=== PATIENT | female | born 1995 | race Caucasian/White ===

== ENCOUNTER 2019-02-18 17:16 | Emergency (ER) | payer OTHER ==
[2019-02-18] MEDS ORDERED: ACETAMINOPHEN 325 MG TABLET PO STA (17:48)
[2019-02-18 17:52] LABS: BILIRUBIN,URINE NEGATIVE (NEGATIVE); GLUCOSE, URINE (UA) NEGATIVE (NEGATIVE); KETONES,URINE (UA) NEGATIVE (NEGATIVE); LEUKOCYTE ESTERASE, URINE NEGATIVE (NEGATIVE); NITRITE,URINE NEGATIVE (NEGATIVE); OCCULT BLOOD,URINE NEGATIVE (NEGATIVE); PROTEIN,URINE NEGATIVE (NEGATIVE); UROBILINOGEN,URINE 0.2 (NORMAL) E.U./dL (NORMAL)
--- NOTE | 2019-02-18 17:52 | ED Physician Documentation ---
PD HPI FEMALE - Stated complaint Stated Complaint: 8WKS/CRAMPING - Chief complaint Chief Complaint: Abd Pain - History obtained from History obtained from: Patient - History of Present Illness Timing - onset: Today Timing - duration: Hours (3) Timing - details: Gradual onset Pain level max: 5 Pain level max: 5 Associated symptoms: Pelvic pain, Vaginal discharge (clear). No: Fever, Chest/shoulder pain, Abdominal pain, Back pain, Vaginal pain, Vaginal bleeding, Genital sore/lesion, Dysuria, Urinary frequency, Hematuria Contributing factors: (8 weeks EGA). No: control, Oral contraceptive, Depo, IUD, Condoms, Tubal ligation, Hysterectomy, Sexually active, Not sexually active, Exposed to STD OB-TELETYPEWRITER OPERATOR History: G (1), P (0) Similar symptoms before: Has not had sx before Recently seen: Not recently seen Review of Systems Constitutional: denies: Fever, Chills Respiratory: denies: Cough GI: denies: Nausea, Vomiting, Hematemesis : denies: Dysuria, Frequency, Hesitancy Skin: denies: Rash Musculoskeletal: denies: Neck pain, Back pain Neurologic: denies: Headache PD PAST MEDICAL HISTORY - Past Medical History Past Medical History: No - Past Surgical History Past Surgical History: No - Present Medications Home Medications: Ambulatory Orders Medication Instructions Recorded Confirmed No Known Home Medications 02/18/19 02/18/19 - Allergies Allergies/Adverse Reactions: Allergies Allergy/AdvReac Type Severity Reaction Status Date / Time No Known Drug Allergies Allergy Verified 02/18/19 17:28 - Social History Does the pt smoke?: No Smoking Status: Never smoker Does the pt drink ETOH?: No Does the pt have substance abuse?: No PD ED PE NORMAL - Vitals Vital signs reviewed: Yes - General General: Alert and oriented X 3, No acute distress - HEENT HEENT: Moist mucous membranes - Neck Neck: Supple, no meningeal sign - Cardiac Cardiac: RRR - Respiratory Respiratory: No respiratory distress, Clear bilaterally - Abdomen Abdomen: Soft, Non distended, Other (TTP suprapubic without peritoneal signs.) - Derm Derm: Warm and dry - Extremities Extremities: No edema, No calf tenderness / cord - Neuro Neuro: Alert and oriented X 3 Results - Vitals Vitals: Vital Signs - 24 hr 02/18/19 02/18/19 17:24 20:43 Temperature 36.4 C L Heart Rate 86 72 Respiratory 16 16 Rate Blood Pressure 124/66 131/60 H O2 Saturation 100 100 Oxygen O2 Source Room air - Labs Labs: Laboratory Tests 02/18/19 02/18/19 02/18/19 17:40 17:44 17:44 WBC 8.8 RBC 4.79 Hgb 13.7 Hct 39.9 MCV 83.3 MCH 28.6 MCHC 34.3 RDW 12.3 Plt Count 247 MPV 9.4 Neut # (Auto) 5.3 Lymph # (Auto) 2.9 [place] # (Auto) 0.5 Eos # (Auto) 0.1 Baso # (Auto) 0.0 Absolute Nucleated RBC 0.00 Nucleated RBC % 0.0 Sodium 135 Potassium 3.4 L Chloride 104 Carbon Dioxide 23 Anion Gap 8.0 BUN 8 Creatinine 0.5 Estimated GFR (MDRD) 154 Glucose 89 Calcium 9.0 Total Bilirubin 0.5 AST 16 ALT 19 Alkaline Phosphatase 39 L Total Protein 7.5 Albumin 4.5 Globulin 3.0 Albumin/Globulin Ratio 1.5 Lipase 28 HCG, Quant Urine Color YELLOW Urine Clarity CLEAR Urine pH 7.0 Ur Specific [place] <=1.005 Urine Protein NEGATIVE Urine Glucose (UA) NEGATIVE Urine Ketones NEGATIVE Urine Occult Blood NEGATIVE Urine Nitrite NEGATIVE Urine Bilirubin NEGATIVE Urine Urobilinogen 0.2 (NORMAL) Ur Leukocyte Esterase NEGATIVE Ur Microscopic Review NOT INDICATED Urine Culture Comments NOT INDICATED Blood Type 02/18/19 02/18/19 17:44 17:44 WBC RBC Hgb Hct MCV MCH MCHC RDW Plt Count MPV Neut # (Auto) Lymph # (Auto) [place] # (Auto) Eos # (Auto) Baso # (Auto) Absolute Nucleated RBC Nucleated RBC % Sodium Potassium Chloride Carbon Dioxide Anion Gap BUN Creatinine Estimated GFR (MDRD) Glucose Calcium Total Bilirubin AST ALT Alkaline Phosphatase Total Protein Albumin Globulin Albumin/Globulin Ratio Lipase HCG, Quant 68494.00 Urine Color Urine Clarity Urine pH Ur Specific [place] Urine Protein Urine Glucose (UA) Urine Ketones Urine Occult Blood Urine Nitrite Urine Bilirubin Urine Urobilinogen Ur Leukocyte Esterase Ur Microscopic Review Urine Culture Comments Blood Type A NEGATIVE - Rads (name of study) OB ultrasound Radiology: Prelim report reviewed, EMP read contemporaneously, See rad report (Single intrauterine gestational sac measuring 5 weeks 6 days by mean gestational sac diameter. Yolk sac is identified. No pole is seen. Continued follow-up is recommended with beta-hCG and ultrasound. Simple ovarian cysts bilaterally measuring up to 4.6 cm on the left. ) PD MEDICAL DECISION MAKING - ED course Complexity details: reviewed results, re-evaluated patient, considered differential, d/w patient, d/w family ED course: 23-year-old female with abdominal cramping, has a single intrauterine gestational sac, 5 weeks 6 days. Has her appointment with OB early next week. No vaginal bleeding. Ectopic precautions given at bedside. Patient is G1, P0. Patient counseled regarding signs and symptoms for which I believe and urgent re-evaluation would be necessary. Patient with good understanding of and agreement to plan and is comfortable going home at this time This document was made in part using voice recognition software. While efforts are made to proofread this document, sound alike and grammatical errors may occur. Departure - Departure Disposition: 01 Home, Self Care Clinical Impression: Abdominal pain affecting Qualifiers: Weeks of gestation: less than 8 weeks Qualified Code(s): Z3A.01 - Less than 8 weeks gestation of Condition: Good Instructions: ED Abdominal Pain Rule Out Ectopic, ED Care Follow-Up: Nitin Stone ARNP [Primary Care Provider] - Within 3 Days Comments: Return if you worsen including worsening pain or bleeding. You are approximately 5 weeks and 6 days along[place] [address] today. Take tylenol for pain. Discharge Date/Time: 02/18/19 21:15
[2019-02-18 17:55] LABS: CLARITY,URINE CLEAR (CLEAR)
[2019-02-18 17:56] LABS: BASOPHILS % (AUTO) 0.5 %; EOSINOPHILS # (AUTO) 0.1 10^3/uL (0.0-0.7); EOSINOPHILS % (AUTO) 1.5 %; HGB - HEMOGLOBIN 13.7 g/dL (12.0-16.0); LYMPHOCYTES # (AUTO) 2.9 10^3/uL (1.5-3.5); LYMPHOCYTES % (AUTO) 32.7 %; MEAN CORPUSCULAR HEMOGLOBIN 28.6 pg (27.0-31.0); MEAN CORPUSCULAR HGB CONC 34.3 g/dL (32.0-36.0); MEAN CORPUSCULAR VOLUME 83.3 fL (81.0-99.0); MEAN PLATELET VOLUME 9.4 fL (7.9-10.8); MONOCYTES # (AUTO) 0.5 10^3/uL (0.0-1.0); MONOCYTES % (AUTO) 5.4 %; NEUTROPHILS # (AUTO) 5.3 10^3/uL (1.5-6.6); NEUTROPHILS % (AUTO) 59.4 %; PLT - PLATELET COUNT 247 10^3/uL (130-450); RED BLOOD COUNT 4.79 10^6/uL (4.20-5.40); RED CELL DISTRIBUTION WIDTH 12.3 % (12.0-15.0); WHITE BLOOD COUNT 8.8 x10^3/uL (4.8-10.8)
[2019-02-18 18:05] LABS: ALBUMIN 4.5 g/dL (3.2-5.5); ALBUMIN/GLOBULIN RATIO 1.5 (1.0-2.2); BILIRUBIN,TOTAL 0.5 mg/dL (0.2-1.0); CREATININE 0.5 mg/dL (0.4-1.0); TOTAL PROTEIN 7.5 g/dL (6.7-8.2)
--- NOTE | 2019-02-18 20:25 | Ultrasound Report ---
Reason: 8 weeks preg, pelvic pain Procedure Date: 02/18/2019 Accession Number: [id number] / [id number] Procedure: US - OB First Trimester CPT Code: FULL RESULT: EXAM: FIRST TRIMESTER OBSTETRIC ULTRASOUND (Less than 11 weeks) EXAM DATE: 02/18/2019 07:03 PM. CLINICAL HISTORY: 8 weeks preg, pelvic pain. LMP: 12/24/2018. COMPARISONS: None. TECHNIQUE: Transabdominal and transvaginal ultrasound examination with static image documentation. CLINICAL DATES: EGA 8 weeks 0 days with YVETTE 09/30/2019 based on LMP. ASSESSMENT: Gestational Sac: Single intrauterine. Mean gestational sac diameter: 10.7 mm = 5 weeks 6 days. Embryo: Not seen Yolk sac: 1.5 mm. Amniotic fluid: Not accurately assessed at this gestational age. Early placenta: Not visible at this gestational age. Other: No perigestational fluid collection demonstrated. MATERNAL STRUCTURES: Uterus: Anteverted. Unremarkable. Cervix: Closed. Right ovary appears unremarkable aside from a 1.8 cm simple appearing cyst. Left ovary demonstrates a 4.6 cm simple appearing cyst. 1.8 cm corpus luteum. Free Fluid: None. Other: None. IMPRESSION: Single intrauterine gestational sac measuring 5 weeks 6 days by mean gestational sac diameter. Yolk sac is identified. No pole is seen. Continued follow-up is recommended with beta-hCG and ultrasound. Simple ovarian cysts bilaterally measuring up to 4.6 cm on the left. RADIA
[2019-02-18 20:44] VITALS: BP 131/60
== END 2019-02-18 21:15 | disposition home or self-care (01) ==
LOC: ED 17:16
DX: O99.89 Other specified diseases and conditions complicating pregnancy, childbirth and the puerperium (principal); R10.9 Unspecified abdominal pain; Z3A.01 Less than 8 weeks gestation of pregnancy
CPT/HCPCS: 36415; 76801; 76817; 80053; 81003; 83690; 84702; 85025; 86900; 86901; 99283; A9270; 81001; 87086

== ENCOUNTER 2019-07-30 14:07 | Outpatient (CLI) | payer OTHER ==
[2019-07-30 18:32] LABS: HGB - HEMOGLOBIN 12.7 g/dL (12.0-16.0); MEAN CORPUSCULAR HEMOGLOBIN 29.3 pg (27.0-31.0); MEAN CORPUSCULAR HGB CONC 33.8 g/dL (32.0-36.0); MEAN CORPUSCULAR VOLUME 86.6 fL (81.0-99.0); MEAN PLATELET VOLUME 10.4 fL (7.9-10.8); RED BLOOD COUNT 4.34 10^6/uL (4.20-5.40); WHITE BLOOD COUNT 9.1 x10^3/uL (4.8-10.8)
== END 2019-07-30 23:59 | disposition home or self-care (01) ==
LOC: LAB.WCP 14:07
PROVIDERS: ATTEND Nurse Practitioner Obstetrics & Gynecology
DX: Z36.89 Encounter for other specified antenatal screening (principal)
CPT/HCPCS: 82950; 85027; 86850

== ENCOUNTER 2019-08-05 07:49 | Outpatient (CLI) | payer OTHER | END 2019-08-05 07:50 | disposition home or self-care (01) | LOC: LAB 07:49 | PROVIDERS: ATTEND Nurse Practitioner Obstetrics & Gynecology | DX: Z53.9 Procedure and treatment not carried out, unspecified reason (principal) | CPT/HCPCS: 36415; 82951; 82952 ==

== ENCOUNTER 2019-08-06 07:44 | Outpatient (CLI) | payer OTHER | END 2019-08-06 07:45 | disposition home or self-care (01) | LOC: LAB 07:44 | PROVIDERS: ATTEND Nurse Practitioner Obstetrics & Gynecology | DX: O99.810 Abnormal glucose complicating pregnancy (principal); Z3A.00 Weeks of gestation of pregnancy not specified | CPT/HCPCS: 36415; 82951; 82952 ==

== ENCOUNTER 2019-08-23 09:33 | Outpatient (CLI) | payer OTHER ==
--- NOTE | 2019-08-23 14:37 | Ultrasound Report ---
Reason: SCREENING Procedure Date: 08/23/2019 Accession Number: [id number] / [id number] Procedure: US - OB F/U or Repeat CPT Code: Final Report FULL RESULT: EXAM: FOLLOW-UP OBSTETRICAL ULTRASOUND EXAM DATE: 08/23/2019 10:08 AM. CLINICAL HISTORY: Follow-up of reported renal finding on anatomy scan performed at outside institution. COMPARISON: OB FIRST TRIMESTER 02/18/2019 7:03 PM. TECHNIQUE: Real-time sonographic evaluation of the fetus performed by the roguer. Multiple provider relations representative static images were saved for review. DATING: Established EGA 32 weeks 0 days with YVETTE 10/18/2018 based on reported working due date. GENERAL EVALUATION Wahl . Cardiac activity: 128 bpm. movement: Visualized. Presentation: Cephalic. Placenta: Posterior position. Amniotic fluid: Normal. TABATHA 17.2 cm. MVP 5.3 cm. ANATOMY Right kidney measures up to 4.1 cm with a prominent renal pelvis of up to 5.6 mm. Left kidney measures up to 4.2 cm in length with a prominent renal pelvis of up to 5.3 mm. IMPRESSION: 1. Wahl live intrauterine with gestational age 32 weeks 0 days based on reported working due date. 2. Symmetric size kidneys with bilateral prominent renal pelvises of up to 5.6 mm as described. Recommend correlation of bilateral prominent pelvices to previous examination, not available for comparison at the time of interpretation. RADIA
== END 2019-08-23 09:34 | disposition home or self-care (01) ==
LOC: DI 09:33
PROVIDERS: ATTEND Nurse Practitioner Obstetrics & Gynecology
DX: Z36.89 Encounter for other specified antenatal screening (principal)
CPT/HCPCS: 76816

== ENCOUNTER 2019-09-24 07:00 | Outpatient (CLI) | payer OTHER ==
[2019-09-24 21:34] LABS: TRICHOMONAS VAGINALIS DNA NEGATIVE (NEGATIVE)
== END 2019-09-24 23:59 | disposition home or self-care (01) ==
LOC: LAB.R 07:00
PROVIDERS: ATTEND Nurse Practitioner Obstetrics & Gynecology
DX: Z36.85 Encounter for antenatal screening for Streptococcus B (principal); Z36.89 Encounter for other specified antenatal screening
CPT/HCPCS: 87491; 87591; 87661; 87797

== ENCOUNTER 2019-09-24 15:23 | Outpatient (CLI) | payer OTHER ==
[2019-09-24 15:47] VITALS: BP 129/89
[2019-09-24 16:00] LABS: RUPTURE OF MEMBRANES PLUS NEGATIVE (NEGATIVE)
--- NOTE | 2019-09-24 16:23 | PROVIDER PROGRESS NOTE ---
- HPI Chief Complaint: Leakage of vaginal fluid Current : Current EDU 10/18/19 Gestation 36 Weeks and 4 Days 1 Para 0 Vital Signs Temperature 37.0 C 09/24/19 15:41 Heart Rate 87 09/24/19 15:41 Respiratory Rate 18 09/24/19 15:41 Blood Pressure 129/89 H 09/24/19 15:41 O2 Saturation 98 09/24/19 15:41 Temperature 37.0 C 09/24/19 15:41 Heart Rate 87 09/24/19 15:41 Respiratory Rate 18 09/24/19 15:41 Blood Pressure 129/89 H 09/24/19 15:41 O2 Saturation 98 09/24/19 15:41 - Procedures OB Procedure Performed: NST NST Procedure: NST Procedure Start Date 09/24/19 Start Time 15:40 Stop Time 16:00 Vibroacoustic Stimulation Used No Patient States Movement Yes Service Date of procedure: 09/24/19 - Plan Plan: Blanca presents to [facility] as directed following her routine visit today due to leakage of vaginal fluid which she states has been occurring for approximately 1 week. Upon examination, no gross leakage of fluid present. ROM plus - negative TABATHA -pending NST reactive. Baseline 140s, moderate variability, + accels, no decels NST completed 09/24/2019 NST read 09/24/2019 Pt released home with precautions. She verbalized understanding and agrees to above plan. She denies further questions or concerns at this time. FINAL DIAGNOSIS: 24yo @ 36.4wks gestation Vaginal discharge - not associated with amniotic fluid
--- NOTE | 2019-09-24 20:11 | Ultrasound Report ---
Reason: leaking fluid Procedure Date: 09/24/2019 Accession Number: [id number] / [id number] Procedure: US - OB F/U or Repeat CPT Code: Final Report FULL RESULT: EXAM: LIMITED OBSTETRICAL ULTRASOUND EXAM DATE: 09/24/2019 04:13 PM. CLINICAL HISTORY: Leaking fluid. COMPARISON: OB F/U OR REPEAT 08/23/2019 9:36 AM. TECHNIQUE: Real-time sonographic evaluation of the fetus performed by the patient registration manager. Multiple sales utility representative static images were saved for review. Additional transvaginal imaging to more accurately evaluate cervical length/placental position/etc. DATING: Established EGA 36 weeks 4 days. GENERAL EVALUATION Wahl . Cardiac activity: 143 bpm. Presentation: Cephalic. Placenta: Exterior position. Amniotic fluid: TABATHA 20.9 cm. MVP 10 cm. IMPRESSION: 1. Wahl live intrauterine with gestational age 36 weeks 4 days. 2. TABATHA 20.9 cm. 3. heart rate 143. RADIA
== END 2019-09-24 16:45 | disposition home or self-care (01) ==
LOC: WFO 15:23 → FBP 15:26 → WFO 16:45
PROVIDERS: ATTEND Nurse Practitioner Obstetrics & Gynecology
DX: O99.89 Other specified diseases and conditions complicating pregnancy, childbirth and the puerperium (principal); N89.8 Other specified noninflammatory disorders of vagina; Z3A.36 36 weeks gestation of pregnancy
CPT/HCPCS: 59025; 76816; 84112

== ENCOUNTER 2019-09-28 17:21 | Outpatient (CLI) | payer OTHER ==
--- NOTE | 2019-09-29 23:31 | Ultrasound Report ---
Reason: GESTATIONAL DIABETES Procedure Date: 09/28/2019 Accession Number: [id number] / [id number] Procedure: US - OB F/U or Repeat CPT Code: Final Report FULL RESULT: EXAM: FOLLOW-UP OBSTETRICAL ULTRASOUND EXAM DATE: 09/28/2019 06:27 PM. CLINICAL HISTORY: GESTATIONAL DIABETES. COMPARISON: OB F/U OR REPEAT 09/24/2019 4:13 PM. TECHNIQUE: Real-time sonographic evaluation of the fetus performed by the animal biologist. Multiple school admissions representative static images were saved for review. DATING: Established EGA 37 weeks 5 days with YVETTE 10/14/2019 based on LMP. EGA 37 weeks 1 day with YVETTE 10/18/2019 based on provider dating. EGA 37 weeks 3 days with YVETTE 10/16/2019 based on the current ultrasound. GENERAL EVALUATION Wahl . Cardiac activity: 151 bpm. movement: Visualized. Presentation: Cephalic. Placenta: Posterior position. Amniotic fluid: Upper limits of normal, 95th percentile. TABATHA 24.5 cm. MVP 7.2 cm. BIOMETRY Bi-Parietal Diameter (BPD): 9.5 cm, 38 weeks 2 days Head Circumference (HC): 33.5 cm, 38 weeks 2 days Abdominal Circumference (AC): 33.2 cm, 37 weeks 1 day Femur Length (FL): 7 cm, 35 weeks 5 days Estimated Weight: 3097 g, 54th percentile for 37 weeks 1 day. MATERNAL STRUCTURES The cervix measures 4.6 cm, and is closed. IMPRESSION: 1. Wahl live intrauterine with gestational age 37 weeks 1 day based on provider dating. 2. Estimated weight is within expected limits for assigned dating. 3. Amniotic fluid volume at the upper limits of normal. RADIA
== END 2019-09-28 17:22 | disposition home or self-care (01) ==
LOC: DI 17:21
PROVIDERS: ATTEND Nurse Practitioner Obstetrics & Gynecology
DX: O24.419 Gestational diabetes mellitus in pregnancy, unspecified control (principal); Z3A.37 37 weeks gestation of pregnancy
CPT/HCPCS: 76816

== ENCOUNTER 2019-09-30 15:50 | Outpatient (CLI) | payer OTHER ==
[2019-09-30 16:04] VITALS: BP 129/74
--- NOTE | 2019-10-22 09:44 | PROCEDURE REPORT ---
- HPI Diagnosis/Indication for NST: Decreased movement Current EDU 10/18/19 Gestation 37 Weeks and 3 Days 1 Para 0 Vital Signs Temperature 37.0 C 09/30/19 16:03 Heart Rate 98 09/30/19 16:03 Respiratory Rate 17 09/30/19 16:03 Blood Pressure 129/74 09/30/19 16:03 O2 Saturation 99 09/30/19 16:03 Temperature 37.0 C 09/30/19 16:03 Heart Rate 98 09/30/19 16:03 Respiratory Rate 17 09/30/19 16:03 Blood Pressure 129/74 09/30/19 16:03 O2 Saturation 99 09/30/19 16:03 - NST Procedure NST Procedure Start Date 09/30/19 Start Time 16:00 Stop Time 16:38 Vibroacoustic Stimulation Used No Patient States Movement Yes - Results and Plan Findings/Impression: reactive NST reassured Plan: reviewed FM
== END 2019-09-30 16:51 | disposition home or self-care (01) ==
LOC: WFO 15:50 → FBP 15:52 → WFO 16:51
PROVIDERS: ATTEND Obstetrics & Gynecology
DX: O36.8130 Decreased fetal movements, third trimester, not applicable or unspecified (principal)
CPT/HCPCS: 59025

== ENCOUNTER 2019-10-04 11:04 | Outpatient (CLI) | payer OTHER ==
[2019-10-04 11:14] VITALS: BP 120/79
--- NOTE | 2019-10-04 14:53 | Ultrasound Report ---
Reason: Polyhydramnios and GDM Procedure Date: 10/04/2019 Accession Number: [id number] / [id number] Procedure: US - OB Biophysical Profile CPT Code: Final Report FULL RESULT: EXAM: BIOPHYSICAL PROFILE EXAM DATE: 10/04/2019 01:09 PM. CLINICAL HISTORY: Polyhydramnios and GDM. COMPARISON: None. TECHNIQUE: Real-time sonographic evaluation of the fetus performed by the silk screen printing racker. Multiple patient portal representative static images were saved for review. DATING: Established EGA 38 weeks 0 days with YVETTE 10/18/2019. GENERAL EVALUATION Wahl . Cardiac activity: 146 bpm. movement: Visualized. Presentation: Cephalic. Placenta: Posterior position. No evidence for previa or abruption. Amniotic fluid: Normal. TABATHA 21.9 cm. MVP 7.9 cm. BIOPHYSICAL PROFILE Breathing = 2 Movement = 2 Tone = 2 Amniotic Fluid = 2 Total 04/01 IMPRESSION: 1. Wahl live intrauterine with gestational age 38 weeks 0 days based on established YVETTE. 2. Biophysical profile score 8 of 8. 3. Amniotic fluid next measures 21.9 cm. Previously measuring 24.5 cm. RADIA
--- NOTE | 2019-10-04 16:45 | PROCEDURE REPORT ---
- HPI Diagnosis/Indication for NST: Polyhydramnios Current EDU 10/18/19 Gestation 38 Weeks and 0 Days 1 Para 0 Vital Signs Temperature 36.9 C 10/04/19 11:13 Heart Rate 83 10/04/19 11:13 Respiratory Rate 18 10/04/19 11:13 Blood Pressure 120/79 10/04/19 11:13 O2 Saturation 100 10/04/19 11:13 Temperature 36.9 C 10/04/19 11:13 Heart Rate 83 10/04/19 11:13 Respiratory Rate 18 10/04/19 11:13 Blood Pressure 120/79 10/04/19 11:13 O2 Saturation 100 10/04/19 11:13 - NST Procedure NST Procedure Start Date 10/04/19 Start Time 11:10 Stop Time 12:40 Vibroacoustic Stimulation Used Yes Patient States Movement Yes - Results and Plan Findings/Impression: NST performed 10/04/2019 NST read 10/04/2019 NST reactive. Baseline 140s, moderate variability, + accels, no decels Plan: Blanca presents to [facility] for NST and BPP secondary to new diagnosis of polyhydramnios which was discovered on growth and TABATHA ultrasound performed on 09/28/2019 which revealed TABATHA 24.5cm (MVP 7.2cm). NST reactive. Baseline 140s, moderate variability, + accels, no decels BPP 8/8. Patient released home with precautions and will return for NST later this week. Pt verbalized understanding and agrees to above plan. She denies further questions or concerns at this time.
== END 2019-10-04 13:40 | disposition home or self-care (01) ==
LOC: WFO 11:04 → FBP 11:06 → WFO 13:40
PROVIDERS: ATTEND Nurse Practitioner Obstetrics & Gynecology
DX: O40.3XX0 Polyhydramnios, third trimester, not applicable or unspecified (principal); Z3A.38 38 weeks gestation of pregnancy
CPT/HCPCS: 59025; 76819

== ENCOUNTER 2019-10-06 14:16 | Outpatient (CLI) | payer OTHER ==
[2019-10-06 15:08] VITALS: BP 128/59
--- NOTE | 2019-10-06 15:10 | PROVIDER PROGRESS NOTE ---
- HPI Chief Complaint: Labor Check - Procedures OB Procedure Performed: NST Diagnosis/Indication for NST: Other NST Procedure: NST Procedure Start Time 11:10 Stop Time 12:40 Service Date of procedure: 10/06/19 - Plan Plan: Blanca presents to [facility] with complaints of swelling in her feet and ankles bilaterally in addition to contractions which have been persistent throughout the day today. She states she feels well hydrated and consistently drinks 8 glasses of water per day. She denies TREJO, visual disturbances, RUQ or epigastric pain. She denies vaginal bleeding or leakage of fluid and reports +FM. She denies urinary symptoms. Reports she does feel she may be slightly constipated. She has attempted to elevate her feet and rest for the past 2 hours and states it has not improved her swelling at all. 1+ edema noted to LE's bilaterally BP normotensive NST reactive. Baseline 140s, moderate variability, + accels, no decels Tocometry reveals mild uterine irritability with occasional contractions SVE deferred. Plan: Advised pt to increased fluid intake, hydrate, and rest. Encouraged warm bath/shower. Implement stool softener or use Mirilax to relieve constipation as this may be contributing to uterine irritability. Pt released home with precautions. Advised keeping her scheduled IOL 10/12/2019 and return sooner PRN. Pt verbalized understanding and agrees to above plan. She denies further questions or concerns at this time. FINAL DIAGNOSIS: False labor >37wks gestation Edema to lower extremities bilaterally
== END 2019-10-06 14:54 | disposition home or self-care (01) ==
LOC: WFO 14:16 → FBP 14:27 → WFO 14:54
PROVIDERS: ATTEND Nurse Practitioner Obstetrics & Gynecology
DX: O12.03 Gestational edema, third trimester (principal); O47.1 False labor at or after 37 completed weeks of gestation; Z3A.37 37 weeks gestation of pregnancy
CPT/HCPCS: 99213

== ENCOUNTER 2019-10-07 07:52 | Outpatient (CLI) | payer OTHER ==
[2019-10-07 08:09] VITALS: BP 119/70
--- NOTE | 2019-10-07 13:10 | Ultrasound Report ---
Reason: polyhydramnios Procedure Date: 10/07/2019 Accession Number: [id number] / [id number] Procedure: US - OB Biophysical Profile CPT Code: Final Report FULL RESULT: EXAM: BIOPHYSICAL PROFILE EXAM DATE: 10/07/2019 11:22 AM. CLINICAL HISTORY: Polyhydramnios. COMPARISON: OB BIOPHYSICAL PROFILE 10/04/2019 1:09 PM. TECHNIQUE: Real-time sonographic evaluation of the fetus performed by the file clerk data entry. Multiple lead customer service representative static images were saved for review. DATING: Established EGA 38 weeks 3 days with YVETTE 10/18/2019. GENERAL EVALUATION Wahl . Cardiac activity: 132 bpm. movement: Visualized. Presentation: Cephalic. Placenta: Posterior position. No evidence for previa or abruption. Amniotic fluid: Normal. TABATHA 20.7 cm. MVP 6.9 cm. BIOPHYSICAL PROFILE Breathing = 2 Movement = 2 Tone = 2 Amniotic Fluid = 2 Total 8/8 IMPRESSION: 1. Wahl live intrauterine with gestational age 38 weeks 3 days based on established YVETTE 10/18/2019. 2. Biophysical profile score 8 of 8. 3. Amniotic fluid index 20.7. Previously 21.9 RADIA
--- NOTE | 2019-10-07 18:06 | PROCEDURE REPORT ---
- HPI Diagnosis/Indication for NST: Polyhydramnios Current EDU 10/18/19 Gestation 38 Weeks and 3 Days 1 Para 0 Vital Signs Temperature 98.1 F 10/07/19 08:08 Heart Rate 115 H 10/07/19 08:08 Respiratory Rate 18 10/07/19 08:08 Blood Pressure 119/70 10/07/19 08:08 O2 Saturation 100 10/07/19 08:08 Temperature 98.1 F 10/07/19 08:08 Heart Rate 115 H 10/07/19 08:08 Respiratory Rate 18 10/07/19 08:08 Blood Pressure 119/70 10/07/19 08:08 O2 Saturation 100 10/07/19 08:08 - NST Procedure NST Procedure Start Date 10/07/19 Start Time 08:05 Stop Time 09:53 Vibroacoustic Stimulation Used Yes Patient States Movement Yes - Results and Plan Findings/Impression: BPP 10/10. Tracing with normal baseline, mod LTV. No accels other than with VAS. One possible variable decel lasting 20sec but more likely broken tracing. Plan to f/u for IOL in a few days due to poly.
== END 2019-10-07 12:15 | disposition home or self-care (01) ==
LOC: WFO 07:52 → FBP 07:58 → WFO 12:15
PROVIDERS: ATTEND Nurse Practitioner Obstetrics & Gynecology
DX: O40.3XX0 Polyhydramnios, third trimester, not applicable or unspecified (principal); Z3A.38 38 weeks gestation of pregnancy
CPT/HCPCS: 59025; 76819

== ENCOUNTER 2019-10-08 09:53 | Outpatient (CLI) | payer OTHER ==
[2019-10-08 10:13] VITALS: BP 117/66
[2019-10-08 10:56] LABS: RUPTURE OF MEMBRANES PLUS NEGATIVE (NEGATIVE)
--- NOTE | 2019-10-08 16:41 | PROVIDER PROGRESS NOTE ---
- HPI Chief Complaint: Leakage of vaginal fluid Current : Current EDU 10/18/19 Gestation 38 Weeks and 4 Days 1 Para 0 Vital Signs Temperature 37.1 C 10/08/19 10:12 Heart Rate 93 10/08/19 10:12 Respiratory Rate 16 10/08/19 10:12 Blood Pressure 117/66 10/08/19 10:12 O2 Saturation 100 10/08/19 10:12 Temperature 37.1 C 10/08/19 10:12 Heart Rate 93 10/08/19 10:12 Respiratory Rate 16 10/08/19 10:12 Blood Pressure 117/66 10/08/19 10:12 O2 Saturation 100 10/08/19 10:12 - Procedures OB Procedure Performed: NST Diagnosis/Indication for NST: Polyhydramnios NST Procedure: NST Procedure Start Date 10/08/19 Start Time 10:08 Stop Time 10:30 Vibroacoustic Stimulation Used No Patient States Movement Yes - Plan Plan: Blanca presents to [facility] concerns for vaginal leakage of fluid since the middle of the night last night. She reports every time she gets up from a sitting or laying down positions she feels leakage of clear fluid. She states most of the leaking occurred when she was getting up in the night to use the bathroom. She denies vaginal bleeding. She reports +FM. States she has noticed some mild contractions in addition to regular kristen song contractions but is not concerned at this point that she is in active labor although feels things may be starting to change. Upon examination, no gross leakage of vaginal fluid noted. ROM plus collected and returned NEGATIVE Pt has a hx of polyhydramnios in this with TABATHA which was noted to be WNL on the last 2 ultrasounds last week. NST today is reactive. FHR baseline 150s, moderate variability, + accels, no decels. Occasional contraction noted via tocometry. NST performed 10/08/2019. NST read 10/08/2019 Pt released home with precautions. Advised to keep regularly scheduled appt later today. Pt verbalized understanding and agrees to above plan. She denies further questions or concerns at this time. FINAL DIAGNOSIS: Clear vaginal discharge 24yo @ 38.4wks gestation Polyhydramnios- resolved A1GDM
== END 2019-10-08 11:20 | disposition home or self-care (01) ==
LOC: WFO 09:53 → FBP 09:55 → WFO 11:20
PROVIDERS: ATTEND Nurse Practitioner Obstetrics & Gynecology
DX: O99.89 Other specified diseases and conditions complicating pregnancy, childbirth and the puerperium (principal); N89.8 Other specified noninflammatory disorders of vagina; Z3A.38 38 weeks gestation of pregnancy
CPT/HCPCS: 59025; 84112; 99213

== ENCOUNTER 2019-10-08 18:40 | Outpatient (CLI) | payer OTHER ==
[2019-10-08 18:57] VITALS: BP 123/75
[2019-10-08 21:02] LABS: RUPTURE OF MEMBRANES PLUS POSITIVE (NEGATIVE)
[2019-10-08] MEDS ORDERED: hydrOXYzine PAMOATE 25 MG CAPSULE PO ONE (22:18)
--- NOTE | 2019-10-08 22:21 | PROCEDURE REPORT ---
- HPI Diagnosis/Indication for NST: Other (r/o labor, r/o SROM) Vital Signs Temperature 98 F 10/08/19 18:56 Heart Rate 88 10/08/19 18:56 Respiratory Rate 22 10/08/19 18:56 Blood Pressure 123/75 10/08/19 18:56 O2 Saturation 100 10/08/19 18:56 Temperature 98 F 10/08/19 18:56 Heart Rate 88 10/08/19 18:56 Respiratory Rate 22 10/08/19 18:56 Blood Pressure 123/75 10/08/19 18:56 O2 Saturation 100 10/08/19 18:56 - NST Procedure NST Procedure Start Time 10:08 Stop Time 10:30 - Results and Plan Findings/Impression: Contractions q5, "painful", palpate mild. "leaking of fluid" clear and milky, some down the leg. No VB. Good FM. AVSS Alert, NAD EFG normal, vag normal, clumpy discharge in the vault, neg pool, neg valsalva, neg nitrizine, neg fern. +ROM plus test. MVP 6.5, vertex A/P: Intact BOW, prodromal labor, discharge home with vistaril, labor precautions given.
== END 2019-10-08 22:50 | disposition home or self-care (01) ==
LOC: WFO 18:40 → FBP 18:42 → WFO 22:50
PROVIDERS: ATTEND Obstetrics & Gynecology
DX: O47.9 False labor, unspecified (principal); O99.89 Other specified diseases and conditions complicating pregnancy, childbirth and the puerperium; N89.8 Other specified noninflammatory disorders of vagina; Z3A.38 38 weeks gestation of pregnancy; O24.410 Gestational diabetes mellitus in pregnancy, diet controlled
CPT/HCPCS: 59025; 84112; 99213; A9270; 99214

== ENCOUNTER 2019-10-09 23:05 | Inpatient (IN) | payer OTHER ==
[2019-10-10] MEDS ORDERED: SODIUM CHLORIDE FLUSH 0.9% 10 ML SYRINGE IVP PRN (00:07)
[2019-10-10] MEDS ORDERED: AMPICILLIN 2 GM in SODIUM CHLORIDE 0.9% MINIBAG 100 ML IV ONE (00:07)
[2019-10-10] MEDS ORDERED: ONDANSETRON 4 MG/2 ML VIAL ONE (00:54)
[2019-10-10] MEDS ORDERED: ACETAMINOPHEN 325 MG TABLET PO SCH (01:00)
[2019-10-10] MEDS: LACTATED RINGERS 1,000 ML IV SCH ×2 (01:05→05:07)
[2019-10-10] MEDS ORDERED: ONDANSETRON 4 MG/2 ML VIAL IVP PRN ×2 (01:06→02:46)
[2019-10-10 01:19] LABS: ALBUMIN 3.2 g/dL (3.2-5.5); BILIRUBIN,TOTAL 0.4 mg/dL (0.2-1.0); CALCIUM 8.9 mg/dL (8.5-10.3); CREATININE 0.7 mg/dL (0.4-1.0); TOTAL PROTEIN 6.4 g/dL (6.7-8.2)
[2019-10-10] MEDS ORDERED: ROPIVACAINE 0.2% 200 MG/100 ML BAG EP ONE (01:51)
[2019-10-10 01:53] LABS: BASOPHILS % (AUTO) 0.4 %; HGB - HEMOGLOBIN 13.6 g/dL (12.0-16.0); LYMPHOCYTES # (AUTO) 1.8 10^3/uL (1.5-3.5); LYMPHOCYTES % (AUTO) 15.5 %; MEAN CORPUSCULAR HGB CONC 33.5 g/dL (32.0-36.0); MEAN CORPUSCULAR VOLUME 83.5 fL (81.0-99.0); MEAN PLATELET VOLUME 12.3 fL (7.9-10.8); MONOCYTES # (AUTO) 0.7 10^3/uL (0.0-1.0); MONOCYTES % (AUTO) 5.9 %; NEUTROPHILS # (AUTO) 8.7 10^3/uL (1.5-6.6); NEUTROPHILS % (AUTO) 77.5 %; PLT - PLATELET COUNT 213 10^3/uL (130-450); RED BLOOD COUNT 4.86 10^6/uL (4.20-5.40); RED CELL DISTRIBUTION WIDTH 14.4 % (12.0-15.0); WHITE BLOOD COUNT 11.3 x10^3/uL (4.8-10.8)
[2019-10-10] MEDS ORDERED: diphenhydrAMINE INJ 50 MG/ML VIAL IVP PRN (02:46)
[2019-10-10] MEDS ORDERED: NALOXONE 0.4 MG/ML VIAL IVP PRN (02:46)
[2019-10-10] MEDS ORDERED: ePHEDrine 50 MG/ML VIAL IVP PRN (02:46)
[2019-10-10] MEDS ORDERED: ROPIVACAINE 0.2% 200 MG/100 ML BAG EP PRN (02:46)
[2019-10-10] MEDS ORDERED: METOCLOPRAMIDE 10 MG/2 ML VIAL IVP PRN (02:46)
[2019-10-10] MEDS ORDERED: NALBUPHINE 10 MG/ML AMP IVP PRN (02:46)
[2019-10-10] MEDS ORDERED: LACTATED RINGERS 500 ML IV ONE (02:46)
--- NOTE | 2019-10-10 02:50 | ANESTHESIA ---
Pre-Anesthesia VS, & Labs - Diagnosis active labor - Procedure labor epidural Vital Signs: Temp Pulse Resp BP Pulse Ox 36.7 C 120 H 22 151/91 H 10/09/19 23:15 10/09/19 23:15 10/09/19 23:15 10/09/19 23:15 Height 5 ft 6 in Weight (kg) 123.831 kg Body Mass Index 33.5 - NPO Other (instructed to be clear liquids from now until after delivery) - Is Patient ?: Yes - Lab Results Current Lab Results: Laboratory Tests 10/10/19 00:40: Sodium 137, Potassium 3.7, Chloride 107, Carbon Dioxide 19 L, Anion Gap 11.0, BUN 9, Creatinine 0.7, Estimated GFR (MDRD) 104, Glucose 106 H, Calcium 8.9, Total Bilirubin 0.4, AST 22, ALT 18, Alkaline Phosphatase 138 H, Total Protein 6.4 L, Albumin 3.2, Globulin 3.2, Albumin/Globulin Ratio 1.0 10/10/19 00:40: WBC 11.3 H, RBC 4.86, Hgb 13.6, Hct 40.6, MCV 83.5, MCH 28.0, MCHC 33.5, RDW 14.4, Plt Count 213, MPV 12.3 H, Neut # (Auto) 8.7 H, Lymph # (Auto) 1.8, [place] # (Auto) 0.7, Eos # (Auto) 0.0, Baso # (Auto) 0.0, Absolute Nucleated RBC 0.00, Nucleated RBC % 0.0 Fish Bones: 10/10/19 00:40 10/10/19 00:40 Home Medications and Allergies Active Medications Acetaminophen (Tylenol) 650 mg PO Q6H [facility] Lactated Ringer's (Lr) 1,000 mls @ 150 mls/hr IV .Q6H40M SAMANTA Last Admin: 10/10/19 01:05 Dose: 125 mls/hr Ondansetron HCl (Zofran Inj) 4 mg IVP Q4HR PRN PRN Reason: Nausea / Vomiting Last Admin: 10/10/19 01:09 Dose: 4 mg Sodium Chloride (Normal Saline Flush 0.9%) 10 ml IVP PRN PRN PRN Reason: NEEDED PER PROVIDER ORDERS No Known Home Medications 02/18/19 Allergies/Adverse Reactions: Allergies Allergy/AdvReac Type Severity Reaction Status Date / Time No Known Drug Allergies Allergy Verified 02/18/19 17:28 Anes History & Medical History - Anesthetic History Anesthesia Complications: reports: No previous complications Family history of Anesthesia Complications: Denies Family history of Malignant Hyperthermia: Denies - Medical History Cardiovascular: reports: None Pulmonary: reports: None Gastrointestinal: reports: GERD Neuro: reports: None Musculoskeletal: reports: None Endocrine/Autoimmune: reports: Other (gestational DM, obese) Smoking Status: Never smoker - Obstetrical History Events: positive: Gestational diabetes Complications: positive: Treated for GBS/UTI Plan for Delivery: vaginal with epidural Exam General: Alert Dental: WNL Mouth Opening: Greater than 4 Fingerbreadths Neck Mobility: Normal Mallampati classification: II Respiratory: Lungs clear Cardiovascular: Regular rate Extremities: Other (pedal edema) Mental/Cognitive Status: Alert/Oriented X3 Plan Anesthesia Type: Epidural Consent for Procedure(s) Verified and Reviewed: Yes Code Status: Attempt Resuscitation ASA classification: 2-Mild systemic disease Is this case an emergency?: No
[2019-10-10] MEDS ORDERED: OXYTOCIN/DEXTROSE 5 % 30 UNIT/500 ML BAG IV ONE (04:55)
[2019-10-10] MEDS ORDERED: AMPICILLIN 1 GM in SODIUM CHLORIDE 0.9% MINIBAG 100 ML IV SCH (05:00)
--- NOTE | 2019-10-10 05:48 | HISTORY & PHYSICAL EXAMINATION ---
Admit History - Smoking Status: Never smoker - Other Maternal History Other Maternal History: CC: contractions HPI: contractions stronger at home ROS: no fevers, no URI sx, no TREJO, no visual changes, no increase in swelling, no VB, no LOF. Good FM. Feet in general have been quite swollen for weeks. Some dull RUQ pain for weeks. PMH: obese, genital HSV, persistent nausea and vomiting of , depression, former tobacco use quit 01/2019 PSH: wisdom teeth Allergies: NKDA Meds: PNV, valtrex, yeast med, zoloft SH: no t/e/d. Former nanny to twin newborns. FH: no anesthesia problems OB: G1=current Datin10/18/19 by 1st TM US off 2.5w from LMP vax: s/p Tdap and flu Labs: A-, RI, , GBS+, normal pap, neg STI Anatomy: pyelectasis, posterior placenta 1h 155. 3h 104/190/180/82 (3 abnormal values) Polyhydramnios: undergoing surveillance O: elevated bloodpressure and tachycardic Category 1 NST baseline 160 SVE 9cm A/P: 24yo G1 at 38w 38w6d by 1st TM US here in active spontaneous labor. Patient had been prodroming painfully for days. SROM clear with epidural a few hours ago. Comfortable with epidural. Good SVE change from 4cm on admit and 9cm now. +1 station. wellbeing: reassuring, normal sequential screen. --Had mild polyhydramnios. --Pyelectasis: needs renal US at 2w of life, will notify peds. Male. Otherwise normal anatomy US Elevated BP: normal PIH bloodwork, no sx. Get P:C ratio. A1 GDM: sugars well controlled during Obese mom, poly, A9TUH--cita avoid operative vaginal delivery HSV +: no hx of recent lesion, no sx Dep/anx: watch PP, continue zoloft Rh neg: rhogam workup PP, received rhogam during Meds/Allgy - Home Medications Home Medications: Ambulatory Orders Medication Instructions Recorded Confirmed No Known Home Medications 02/18/19 02/18/19 - Allergies Allergies/Adverse Reactions: Allergies Allergy/AdvReac Type Severity Reaction Status Date / Time No Known Drug Allergies Allergy Verified 02/18/19 17:28 Physical - Abdominal Exam Vital Signs: Temp Pulse Resp BP Pulse Ox 98.1 F 120 H 22 151/91 H 10/09/19 23:15 10/09/19 23:15 10/09/19 23:15 10/09/19 23:15
[2019-10-10 06:44] LABS: CREATININE,URINE 250.8 mg/dL; PROTEIN/CREATININE RATIO,URINE 0.4 (<=0.2)
[2019-10-10] MEDS ORDERED: SIMETHICONE CHEW 80 MG TABLET PO PRN (07:46)
[2019-10-10] MEDS ORDERED: OXYTOCIN/DEXTROSE 5 % 30 UNIT/500 ML BAG IV PRN ×2 (07:46→09:09)
[2019-10-10] MEDS ORDERED: ONDANSETRON ODT 4 MG TABLET TL PRN (07:46)
[2019-10-10] MEDS ORDERED: HYDROCORTISONE 1% CREAM 28 GM TUBE PR PRN (07:46)
[2019-10-10] MEDS ORDERED: WITCH HAZEL/GLYCERIN 1 PAD TOP PRN (07:46)
[2019-10-10] MEDS ORDERED: IBUPROFEN 600 MG TABLET PO SCH ×2 (08:00→21:30)
--- NOTE | 2019-10-10 08:19 | DELIVERY NOTE ---
Delivery Note - Labor Labor: positive: Spontaneous - Delivery Method Delivery Method: positive: Spontaneous vaginal delivery - Presentation Presentation: positive: Vertex - Nuchal Cord Nuchal Cord: positive: Present (Tight and cut on perineum) - Amniotic Fluid Description Amniotic Fluid Description: positive: Clear (followed by terminal meconium) - Episiotomy Type Episiotomy Type: positive: None - Laceration Laceration: positive: None - Delivery Outcome Delivery Outcome: positive: Livebirth - [place] : positive: Placed in direct skin contact with mother, Bulb syringe, S timulated, Warmed, [place] used, Warmer used sex: positive: Male - Cord Cord: positive: 3 vessels - Placenta Placenta: positive: Intact, Spontaneous - Estimated Blood Loss Estimated Blood Loss (in cc): 400 - Delivery Comments (Free Text/Narrative) Delivery Comments (Free Text/Narrative): Pt presented in spontaneous labor at 38w6d after a long prodrome. Progressed to deliver as listed above. Epidural for pain control. Pt with maternal tachycardia resolving now post delivery. No temperature or odor to suggest chorioamnionitis. Initial HR in 90s, crept up throughout labor, pt had an epidural, and during pushing phase it was 160s. Resolving currently. Likely due to physiologic changes in labor. No chest pain and pt has a normal pulseox. tachycardia immediately prior to delivery; during pushing phase; lasted 24min, good variability throughout, no decels. Prior to this the tracing was category 1. There was a tight nuchal cord--tachycardia likely due to this. No maternal or temperature to suggest chorio. Apgars were 6 and 9. Pt with preeclampsia without severe features. P:C ratio was 0.4, normal bloodwork, no sx. BPs in labor were normal to mild range, many in 120s- 130s/80s. Max BP was 156/117 but that was the only severe range BP. Pt was labile--had a 122/66 BP followed 3min later by 151/90. Post delivery plan --Watch for any evolving features of severe preeclampsia. Repeat bloodwork in 24h --Notify peds about pyelectasis, pt is aware of this and need for US --Stop checking sugars for A1 GDM. Plan on 2h GTT at 6w --Rhogam workup pt Rh neg --Continue zoloft chronic for dep/anx
[2019-10-10] MEDS: DOCUSATE SODIUM 100 MG CAPSULE PO SCH (09:26)
[2019-10-10] MEDS ORDERED: KETOROLAC 30 MG/ML VIAL IVP SCH (15:30)
--- NOTE | 2019-10-10 16:28 | PROVIDER PROGRESS NOTE ---
Subjective - Subjective Subjective: BPs and HR normal. Objective - Vital Signs/Intake & Output Vital Signs: Vital Signs x48h Temp Pulse Resp BP Pulse Ox 10/10/19 15:47 98.4 F 90 16 94/80 100 10/10/19 12:11 98.4 F 80 18 110/74 99 10/10/19 09:29 102 H 114/98 H 10/10/19 09:00 103 H 119/86 H 10/10/19 08:45 94 16 129/60 10/10/19 08:30 103 H 18 135/57 H Intake & Output: Intake & Output 10/07/19 10/08/19 10/09/19 10/10/19 23:59 23:59 23:59 23:59 Intake Total 852.084 Output Total 800 Balance 52.084 - Lab Results Fish Bones: 10/10/19 00:40 10/10/19 00:40 Other Labs: Lab Results x24hrs 10/10/19 10/10/19 10/10/19 Range/Units 11:23 02:09 00:40 WBC (4.8-10.8) x10^3/uL RBC (4.20-5.40) 10^6/uL Hgb (12.0-16.0) g/dL Hct (37.0-47.0) % MCV (81.0-99.0) fL MCH (27.0-31.0) pg MCHC (32.0-36.0) g/dL RDW (12.0-15.0) % Plt Count (130-450) 10^3/uL MPV (7.9-10.8) fL Neut # (Auto) (1.5-6.6) 10^3/uL Lymph # (Auto) (1.5-3.5) 10^3/uL [place] # (Auto) (0.0-1.0) 10^3/uL Eos # (Auto) (0.0-0.7) 10^3/uL Baso # (Auto) (0.0-0.1) 10^3/uL Absolute Nucleated RBC x10^3/uL Nucleated RBC % /100WBC Sodium 137 (135-145) mmol/L Potassium 3.7 (3.5-5.0) mmol/L Chloride 107 (101-111) mmol/L Carbon Dioxide 19 L (21-32) mmol/L Anion Gap 11.0 (6-13) BUN 9 (6-20) mg/dL Creatinine 0.7 (0.4-1.0) mg/dL Estimated GFR (MDRD) 104 (>89) Glucose 106 H (70-100) mg/dL Calcium 8.9 (8.5-10.3) mg/dL Total Bilirubin 0.4 (0.2-1.0) mg/dL AST 22 (10-42) IU/L ALT 18 (10-60) IU/L Alkaline Phosphatase 138 H (42-121) IU/L Total Protein 6.4 L (6.7-8.2) g/dL Albumin 3.2 (3.2-5.5) g/dL Globulin 3.2 (2.1-4.2) g/dL Albumin/Globulin Ratio 1.0 (1.0-2.2) Urine Creatinine 250.8 mg/dL Ur Total Protein Timed 97 mg/dL Protein/Creatinin Ratio 0.4 H (<=0.2) Blood Type A NEGATIVE Weak D (Du) WEAK-D NEGATIVE Maternal Bleed NEGATIVE (NEGATIVE) 10/10/19 Range/Units 00:40 WBC 11.3 H (4.8-10.8) x10^3/uL RBC 4.86 (4.20-5.40) 10^6/uL Hgb 13.6 (12.0-16.0) g/dL Hct 40.6 (37.0-47.0) % MCV 83.5 (81.0-99.0) fL MCH 28.0 (27.0-31.0) pg MCHC 33.5 (32.0-36.0) g/dL RDW 14.4 (12.0-15.0) % Plt Count 213 (130-450) 10^3/uL MPV 12.3 H (7.9-10.8) fL Neut # (Auto) 8.7 H (1.5-6.6) 10^3/uL Lymph # (Auto) 1.8 (1.5-3.5) 10^3/uL [place] # (Auto) 0.7 (0.0-1.0) 10^3/uL Eos # (Auto) 0.0 (0.0-0.7) 10^3/uL Baso # (Auto) 0.0 (0.0-0.1) 10^3/uL Absolute Nucleated RBC 0.00 x10^3/uL Nucleated RBC % 0.0 /100WBC Sodium (135-145) mmol/L Potassium (3.5-5.0) mmol/L Chloride (101-111) mmol/L Carbon Dioxide (21-32) mmol/L Anion Gap (6-13) BUN (6-20) mg/dL Creatinine (0.4-1.0) mg/dL Estimated GFR (MDRD) (>89) Glucose (70-100) mg/dL Calcium (8.5-10.3) mg/dL Total Bilirubin (0.2-1.0) mg/dL AST (10-42) IU/L ALT (10-60) IU/L Alkaline Phosphatase (42-121) IU/L Total Protein (6.7-8.2) g/dL Albumin (3.2-5.5) g/dL Globulin (2.1-4.2) g/dL Albumin/Globulin Ratio (1.0-2.2) Urine Creatinine mg/dL Ur Total Protein Timed mg/dL Protein/Creatinin Ratio (<=0.2) Blood Type Weak D (Du) Maternal Bleed (NEGATIVE)
[2019-10-10] MEDS: ACETAMINOPHEN 500 MG TABLET PO PRN (19:03)
[2019-10-10] MEDS: IBUPROFEN 600 MG TABLET PO PRN (21:08)
[2019-10-10] MEDS: HEPARIN 5,000 UNIT/ML VIAL SUBQ SCH (21:08)
--- NOTE | 2019-10-11 05:01 | Discharge Plan ---
Discharge Plan Problem Reviewed?: Yes Disposition: Home, Self Care Condition: Good Diet: Regular Activity Restrictions: nothing in the vagina for 6w Shower Restrictions: No No Smoking: If you smoke, Please STOP! Call for help. Follow-up with: Stephie Woodward CNM, [facility] [Provider Admit Priv/Credential] - (3-4 days BP check)
[2019-10-11 06:34] LABS: BASOPHILS % (AUTO) 0.4 %; EOSINOPHILS # (AUTO) 0.1 10^3/uL (0.0-0.7); EOSINOPHILS % (AUTO) 0.8 %; HGB - HEMOGLOBIN 12.4 g/dL (12.0-16.0); LYMPHOCYTES % (AUTO) 40.6 %; MEAN CORPUSCULAR HEMOGLOBIN 28.4 pg (27.0-31.0); MEAN CORPUSCULAR HGB CONC 33.6 g/dL (32.0-36.0); MEAN CORPUSCULAR VOLUME 84.6 fL (81.0-99.0); MEAN PLATELET VOLUME 11.2 fL (7.9-10.8); MONOCYTES # (AUTO) 0.3 10^3/uL (0.0-1.0); NEUTROPHILS # (AUTO) 5.4 10^3/uL (1.5-6.6); NEUTROPHILS % (AUTO) 54.4 %; PLT - PLATELET COUNT 165 10^3/uL (130-450); RED BLOOD COUNT 4.36 10^6/uL (4.20-5.40); RED CELL DISTRIBUTION WIDTH 14.3 % (12.0-15.0); WHITE BLOOD COUNT 9.9 x10^3/uL (4.8-10.8)
[2019-10-11 06:46] LABS: ALBUMIN 2.6 g/dL (3.2-5.5); ALBUMIN/GLOBULIN RATIO 0.9 (1.0-2.2); BILIRUBIN,TOTAL 0.2 mg/dL (0.2-1.0); CALCIUM 8.4 mg/dL (8.5-10.3); CREATININE 0.6 mg/dL (0.4-1.0); TOTAL PROTEIN 5.4 g/dL (6.7-8.2)
--- NOTE | 2019-10-11 07:50 | DISCHARGE SUMMARY ---
Physician: Rox Alcantara MD DATE OF ADMISSION: 10/10/2019 DATE OF DISCHARGE: 10/11/2019 ADMITTING DIAGNOSES 1. Spontaneous labor at term. 2. Type A1 gestational diabetes. 3. Elevated blood pressures. 4. Genital herpes positive. 5. Depression and anxiety. 6. Rh negative. 7. pyelectasis. DISCHARGE DIAGNOSES 1. Status post spontaneous vaginal delivery at term. 2. Depression and anxiety. 3. Rh negative, baby Rh positive. OPERATIONS AND PROCEDURES: On 10/10/2019, spontaneous vaginal delivery of a liveborn male, Apgars we re 6 at 1 minute and 9 at 5 minutes, weight was 9 pounds 1 ounce. HOSPITAL COURSE: Patient was admitted in active spontaneous labor. She received an epidural for edyta n control. She delivered as listed above. There was a tight nuchal cord, which was the reason for t he first of 6. Patient's blood pressure was evaluated and she was found to have preeclampsia without severe features . A [id number]-[id number] ratio was 0.4 and she did not have any symptoms. Her blood work was kelly l. Most blood pressures were in the normal to mild range during her labor. all of her bl ood pressures were normal. Lab work is pending for today. The patient is Rh negative. Baby is Rh positive. She will receive RhoGAM prior to discharge. pyelectasis, pediatricians are aware, and an ultrasound is planned at 10-14 days of life. course was unremarkable. By day 1, she was requesting discharge home. She was eating, ambulating, and urinating without difficulties. was going well. She did not have any heavy bleeding or significant pain. She had not yet had a bowel movement. She had no heada bakari, visual changes, or upper abdominal pain. PHYSICAL EXAMINATION VITAL SIGNS: She is afebrile with normal vital signs. GENERAL: Alert, pleasant, in no apparent distress. ABDOMEN: Soft, nontender, nondistended. Fundus firm, nontender, and at the umbilicus. EXTREMITIES: There was 2+ lower extremity edema to the mid mcdonough, which was symmetric and without khushboo thema. DISCHARGE MEDICINES 1. Continue vitamins. 2. Ibuprofen p.r.n. pain. 3. Colace p.r.n. to soften stool. DISCHARGE DISPOSITION: Home. CONDITION: Good. FOLLOWUP: Later on this week for a blood pressure check in clinic. Patient plans on Depo-Provera fo r control. She will need a 2-hour glucose tolerance test and cholesterol screening at 6 weeks gestation. TD: 10/11/2019 04:50
[2019-10-11] MEDS: HEPARIN 5,000 UNIT/ML VIAL SUBQ SCH (08:03)
[2019-10-11] MEDS: IBUPROFEN 600 MG TABLET PO PRN ×2 (08:03→14:45)
[2019-10-11] MEDS: DOCUSATE SODIUM 100 MG CAPSULE PO SCH (08:03)
[2019-10-11] MEDS ORDERED: RHO(D) IMMUNE GLOBULIN 300 MCG SYRINGE IM SCH (08:18)
[2019-10-11 11:56] VITALS: BP 119/92
[2019-10-11] MEDS: ACETAMINOPHEN 500 MG TABLET PO PRN (14:44)
--- NOTE | 2019-10-11 15:54 | Labor Flowsheet ---
Labor Flowsheet Datetime Report Generated by CPN: 10/11/2019 15:54 Datetime: 10/11/2019 11:49 VITAL SIGNS NBP Sys/Shantal/Mean (mmHg): 113 : 92 : 97 Pulse: 93 LaborFlag: Labor Datetime: 10/10/2019 15:33 SpO2 (%): 100 Datetime: 10/10/2019 11:29 Membranes Ruptured Date/Time: 10/10/2019 02:28 Membranes Rupture Method: Spontaneous Amniotic Fluid Color: Clear Datetime: 10/10/2019 07:26 UTERINE ACTIVITY Monitor Mode: Palpation Frequency (min): 2-3 Quality: Strong Duration (sec): 60-90 Pattern: Normal: <= 5 Contractions in 10 Minutes Resting Tone (Palpate): Relaxed FHR Baseline Rate : 165 FHR Baseline Changes: Tachycardia Variability: Moderate 6-25 bpm Accelerations: 15X15 Decelerations: Variable Category: Category II Datetime: 10/10/2019 06:50 STAGE 2 Pushing: Coached on Pushing Pushing Position: Pushing with Contractions Pushing Progress: Descent with Pushing COMMUNICATION Communication: Provider at Bedside (Annotations: Dr. Alcantara at bedside pushing with patient ) Datetime: 10/10/2019 06:47 VAGINAL EXAM Dilatation (cm): 10.0 Station: 2 Exam by: KH Datetime: 10/10/2019 06:29 ASSESSMENT A Monitor Mode: External US Oxygen Method: Room Air Datetime: 10/10/2019 06:00 Monitor Interventions for FHR: Ultrasound Adjusted Patient Care Comments: Pt in semi fowlers with knees together, ankle Anesthesia Level Check: T10- Umbilicus Datetime: 10/10/2019 05:30 Monitor Interventions for UA: [place] Adjusted Datetime: 10/10/2019 05:14 Strip Reviewed by: Dr. Alcantara Datetime: 10/10/2019 05:00 Contraction Comments: 40-60 Comments: Maternal tachycardia also noted Pain Presence: None/Denies Datetime: 10/10/2019 04:23 Stage of : Labor Oxygen Amount (LPM): 10 Provider Reviewed Strip: No Notification Reason: Status Update; Labor Status Communication Comments: MD notified of SVE and variables. requested to come Datetime: 10/10/2019 04:20 Patient Position/Activity: Right Lateral Datetime: 10/10/2019 04:03 Vaginal Exam Comments: 2cm caput noted Datetime: 10/10/2019 04:02 Procedures: Sterile Vag Exam I/O Interventions: [place] Cath Inserted Datetime: 10/10/2019 04:00 Actions for Decelerations: Side to Side; Oxygen Applied Datetime: 10/10/2019 03:50 Temperature (C): 37.2 Datetime: 10/10/2019 02:28 Amniotic Fluid Odor: Normal Datetime: 10/10/2019 02:25 Anesthesia Comments: Pt positioned on the right side Datetime: 10/10/2019 02:16 Epidural Procedure: Test Dose Datetime: 10/10/2019 02:08 PROCEDURE TIME OUT Procedure Verify: Correct Patient Identity; Accurate Procedure Consent Form; Correct Patient Positi on ANESTHESIA Anesthesia Plans: Epidural Epidural Positioning: Sitting Datetime: 10/10/2019 02:00 PAIN Pain Scale: 10 Pain Type: Cramping Pain Location: Abdomen Pain Goal: 0 Pain Coping: Requesting Pain Medication or Epidural; Crying Pain Assessment Comments: Anesthesia preparing for epidural, pt using nitrous oxide Comfort Measures: Anesthesia Notified Datetime: 10/10/2019 00:36 PATIENT CARE IV/Blood Work: IV Started; Labs Drawn with IV Start Datetime: 10/10/2019 00:29 Membrane Status: Intact Amniotic Fluid Amount: None
== END 2019-10-11 15:52 | disposition home or self-care (01) | DRG 806 ==
LOC: WFO 23:05 → FBP 23:07 → WFO 10-10 00:06 → FBP 10-10 00:07
PROVIDERS: ADMIT Obstetrics & Gynecology; ATTEND Obstetrics & Gynecology
PROC: 10E0XZZ Delivery of Products of Conception, External Approach (ICD-10-PCS; principal; 2019-10-10)
DX: O24.429 Gestational diabetes mellitus in childbirth, unspecified control (principal); O98.32 Other infections with a predominantly sexual mode of transmission complicating childbirth; Z37.0 Single live birth; A60.00 Herpesviral infection of urogenital system, unspecified; O14.04 Mild to moderate pre-eclampsia, complicating childbirth; O77.0 Labor and delivery complicated by meconium in amniotic fluid; O76 Abnormality in fetal heart rate and rhythm complicating labor and delivery; O69.1XX0 Labor and delivery complicated by cord around neck, with compression, not applicable or unspecified; O26.893 Other specified pregnancy related conditions, third trimester; O35.8XX0 Maternal care for other (suspected) fetal abnormality and damage, not applicable or unspecified; O99.824 Streptococcus B carrier state complicating childbirth; O99.344 Other mental disorders complicating childbirth; F32.9 Major depressive disorder, single episode, unspecified; F41.9 Anxiety disorder, unspecified; O99.214 Obesity complicating childbirth; R00.0 Tachycardia, unspecified; Z3A.38 38 weeks gestation of pregnancy; Z67.11 Type A blood, Rh negative; Z87.891 Personal history of nicotine dependence; Z79.899 Other long term (current) drug therapy
CPT/HCPCS: 36415; 80053; 82570; 83033; 84156; 85025; 86900; 86901; 88307; A9270; J7120; Q0162

== ENCOUNTER 2021-02-18 09:04 | Emergency (ER) | payer OTHER ==
[2021-02-18 09:13] VITALS: BP 99/54
[2021-02-18] MEDS ORDERED: diphenhydrAMINE INJ 50 MG/ML VIAL IM STA (10:18)
[2021-02-18] MEDS ORDERED: DEXAMETHASONE 10 MG/ML VIAL PO STA (10:18)
[2021-02-18] MEDS ORDERED: CHERRY SYRUP 10 ML UDC PO ONE (10:18)
--- NOTE | 2021-02-18 11:10 | ED Physician Documentation ---
History of Present Illness - Stated complaint Stated Complaint: RASH - Chief complaint Chief Complaint: General - History obtained from History obtained from: Patient - History of Present Illness Timing: How many days ago (2) - Additonal information Additional information: 25-year-old female has began to have itching to her feet and legs about 4 days ago. She has had generalized itching now, and has developed urticaria to the inside of her thighs beginning 2 days ago. She has been taking some Benadryl and continues to have some problem with itching. She denies any difficulty with shortness of breath and she denies any new or different medications soaps lotions or detergents. She denies any new foods or medications. Review of Systems Constitutional: denies: Fever Eyes: denies: Decreased vision Ears: denies: Ear pain Nose: denies: Congestion Respiratory: denies: Cough GI: denies: Nausea, Vomiting Skin: reports: Rash PD PAST MEDICAL HISTORY - Past Medical History Past Medical History: Yes Cardiovascular: None Respiratory: None Neuro: None Endocrine/Autoimmune: Other GI: GERD SR ACCOUNT EXECUTIVE: None HEENT: None Psych: None Musculoskeletal: None Derm: None - Past Surgical History Past Surgical History: No - Present Medications Home Medications: Ambulatory Orders Medication Instructions Recorded Confirmed predniSONE [Deltasone] 40 mg PO DAILY 5 Days #10 tablet 02/18/21 - Allergies Allergies/Adverse Reactions: Allergies Allergy/AdvReac Type Severity Reaction Status Date / Time No Known Drug Allergies Allergy Verified 02/18/19 17:28 - Social History Does the pt smoke?: No Smoking Status: Never smoker Does the pt drink ETOH?: No Does the pt have substance abuse?: No - Immunizations Immunizations are current?: Yes - POLST Patient has POLST: No PD ED PE NORMAL - Vitals Vital signs reviewed: Yes (normal ) - General General: Alert and oriented X 3, No acute distress, Well developed/nourished - HEENT HEENT: Atraumatic, PERRL, EOMI - Neck Neck: Supple, no meningeal sign, No bony TTP - Cardiac Cardiac: RRR, No murmur - Respiratory Respiratory: No respiratory distress, Clear bilaterally - Abdomen Abdomen: Normal bowel sounds, Soft, Non tender, Non distended, No organomegaly - Back Back: No CVA TTP, No spinal TTP - Derm Derm: Normal color, Warm and dry, Other (There are urticaria to the inside of both thighs. There is not evidence of urticaria elsewhere.) - Extremities Extremities: No deformity, No edema - Neuro Neuro: Alert and oriented X 3, table hand 2-12 intact, No motor deficit, No sensory deficit, Normal speech Eye Opening: Spontaneous Motor: Obeys Commands Verbal: Oriented GCS Score: 15 - Psych Psych: Normal mood, Normal affect Results - Vitals Vitals: Vital Signs - 24 hr 02/18/21 09:09 Temperature 36.4 C L Heart Rate 84 Respiratory 15 Rate Blood Pressure 99/54 L O2 Saturation 100 Oxygen O2 Source Room air PD MEDICAL DECISION MAKING - ED course Complexity details: considered differential, d/w patient ED course: 25-year-old female with urticaria and itching without a specific cause discovered or considered. She is treated here in the emergency department with dexamethasone 10 mg orally and diphenhydramine 25 mg IM. Departure - Departure Disposition: 01 Home, Self Care Clinical Impression: Urticaria Condition: Stable Instructions: ED Urticaria Follow-Up: AJAY CULP MD [Primary Care Provider] - Prescriptions: predniSONE [Deltasone] 40 mg PO DAILY 5 Days #10 tablet Comments: Today we did not find a specific reason for your urticaria. The expectation is that this will resolve with the treatment given. Take the prednisone daily for 5 days and take Benadryl 25 mg every 6 hours for 2 days. Alternatively take a nonsedating antihistamine. Urticaria can recur and there is usually a reason for it. This should not recur while you are on the prednisone. Discharge Date/Time: 02/18/21 11:31
== END 2021-02-18 11:31 | disposition home or self-care (01) ==
LOC: ED 09:04
DX: L50.9 Urticaria, unspecified (principal)
CPT/HCPCS: 99283; 99284; A9270; J1200

== ENCOUNTER 2022-09-13 13:23 | Emergency (ER) | payer OTHER ==
[2022-09-13] MEDS ORDERED: SODIUM CHLORIDE 0.9% 1,000 ML IV STA ×2 (14:00)
[2022-09-13] MEDS ORDERED: METOCLOPRAMIDE 10 MG/2 ML VIAL IVP STA ×2 (14:00→16:01)
[2022-09-13 14:17] LABS: BASOPHILS % (AUTO) 0.2 %; HCT - HEMATOCRIT 37.6 % (37.0-47.0); HGB - HEMOGLOBIN 13.4 g/dL (12.0-16.0); LYMPHOCYTES # (AUTO) 1.6 10^3/uL (1.5-3.5); LYMPHOCYTES % (AUTO) 18.4 %; MEAN CORPUSCULAR HEMOGLOBIN 28.9 pg (27.0-31.0); MEAN CORPUSCULAR HGB CONC 35.6 g/dL (32.0-36.0); MEAN CORPUSCULAR VOLUME 81.2 fL (81.0-99.0); MEAN PLATELET VOLUME 9.9 fL (7.9-10.8); MONOCYTES # (AUTO) 0.4 10^3/uL (0.0-1.0); MONOCYTES % (AUTO) 4.8 %; NEUTROPHILS # (AUTO) 6.7 10^3/uL (1.5-6.6); NEUTROPHILS % (AUTO) 76.1 %; PLT - PLATELET COUNT 200 10^3/uL (130-450); RED BLOOD COUNT 4.63 10^6/uL (4.20-5.40); RED CELL DISTRIBUTION WIDTH 13.4 % (12.0-15.0); WHITE BLOOD COUNT 8.8 x10^3/uL (4.8-10.8)
[2022-09-13 14:26] LABS: ALBUMIN 4.4 g/dL (3.2-5.5); ALBUMIN/GLOBULIN RATIO 1.8 (1.0-2.2); BILIRUBIN,TOTAL 1.3 mg/dL (0.2-1.0); CALCIUM 9.2 mg/dL (8.5-10.3); CREATININE 0.5 mg/dL (0.4-1.0); TOTAL PROTEIN 6.9 g/dL (6.7-8.2)
--- NOTE | 2022-09-13 15:13 | ED Physician Documentation ---
History of Present Illness - Stated complaint Stated Complaint: VOMITING - Chief complaint Chief Complaint: Abd Pain - History obtained from History obtained from: Patient - History of Present Illness Timing: Today Pain level max: 0 Pain level now: 0 - Additonal information Additional information: Patient is a 27-year-old female approximately 9 weeks who presents to the emergency department with nausea and vomiting. Ongoing for the past several weeks but worsening today. No fevers. No chills. She has had diarrhea as well. Has mild abdominal cramping. She states she has tried Zofran without relief. No vaginal bleeding or discharge. Review of Systems Constitutional: denies: Fever, Chills Respiratory: denies: Cough GI: reports: Vomiting, Diarrhea. denies: Hematemesis, Bloody / black stool : denies: Dysuria, Frequency, Hesitancy Skin: denies: Rash Musculoskeletal: denies: Neck pain, Back pain Neurologic: denies: Headache PD PAST MEDICAL HISTORY - Past Medical History Past Medical History: No Cardiovascular: None Respiratory: None Neuro: None Endocrine/Autoimmune: Other GI: GERD EXTERNAL RELATIONS MANAGER: None HEENT: None Psych: None Musculoskeletal: None Derm: None - Past Surgical History Past Surgical History: No - Present Medications Home Medications: Ambulatory Orders Medication Instructions Recorded Confirmed predniSONE [Deltasone] 40 mg PO DAILY 5 Days #10 tablet 02/18/21 Metoclopramide [Reglan] 10 mg PO Q6H PRN #20 tablet 09/13/22 - Allergies Allergies/Adverse Reactions: Allergies Allergy/AdvReac Type Severity Reaction Status Date / Time No Known Drug Allergies Allergy Verified 09/13/22 13:43 - Social History Does the pt smoke?: No Smoking Status: Never smoker Does the pt drink ETOH?: No Does the pt have substance abuse?: No - Immunizations Immunizations are current?: Yes - POLST Patient has POLST: No PD ED PE NORMAL - Vitals Vital signs reviewed: Yes - General General: Alert and oriented X 3, No acute distress - HEENT HEENT: PERRL, Moist mucous membranes, Pharynx benign - Neck Neck: Supple, no meningeal sign - Cardiac Cardiac: RRR, No murmur, Strong equal pulses - Respiratory Respiratory: No respiratory distress, Clear bilaterally - Abdomen Abdomen: Normal bowel sounds, Soft, Non tender, Non distended - Derm Derm: Warm and dry, No rash - Extremities Extremities: No edema, No calf tenderness / cord - Neuro Neuro: Alert and oriented X 3 - Psych Psych: Normal mood, Normal affect Results - Vitals Vitals: Vital Signs - 24 hr 09/13/22 09/13/22 13:40 16:17 Temperature 36.8 C 36.6 C Heart Rate 80 74 Respiratory 14 16 Rate Blood Pressure 113/87 H 112/74 O2 Saturation 100 98 Oxygen O2 Source Room air - Labs Labs: Laboratory Tests 09/13/22 09/13/22 09/13/22 14:00 14:00 15:10 WBC 8.8 RBC 4.63 Hgb 13.4 Hct 37.6 MCV 81.2 MCH 28.9 MCHC 35.6 RDW 13.4 Plt Count 200 MPV 9.9 Neut # (Auto) 6.7 H Lymph # (Auto) 1.6 [place] # (Auto) 0.4 Eos # (Auto) 0.0 Baso # (Auto) 0.0 Absolute Nucleated RBC 0.00 Nucleated RBC % 0.0 Sodium 138 Potassium 3.0 L Chloride 105 Carbon Dioxide 21 Anion Gap 12.0 BUN 7 Creatinine 0.5 Estimated GFR (MDRD) 149 Glucose 108 H Calcium 9.2 Total Bilirubin 1.3 H AST 18 ALT 17 Alkaline Phosphatase 27 L Total Protein 6.9 Albumin 4.4 Globulin 2.5 Albumin/Globulin Ratio 1.8 Lipase 27 Urine Color YELLOW Urine Clarity CLEAR Urine pH 7.0 Ur Specific Brandt 1.015 Urine Protein NEGATIVE Urine Glucose (UA) NEGATIVE Urine Ketones >=80 H Urine Occult Blood NEGATIVE Urine Nitrite NEGATIVE Urine Bilirubin NEGATIVE Urine Urobilinogen 0.2 (NORMAL) Ur Leukocyte Esterase NEGATIVE Ur Microscopic Review NOT INDICATED Urine Culture Comments NOT INDICATED PD Medical Decision Making - ED course Complexity details: reviewed results, re-evaluated patient, considered differential, d/w patient ED course: Bedside ultrasound reveals an intrauterine with a heart rate of 163 bpm. Images were shown to the patient. A CBC was ordered and is unremarkable. Her chemistries are remarkable for a mild hypokalemia. No other significant abnormalities. Her urinalysis is negative except for ketones, likely indicative of dehydration. No evidence of miscarriage at this time. She was given Reglan and is tolerating p.o. without difficulty, eating crackers and applesauce. She is drinking as well. No further vomiting. We will place her on Reglan for home. We will have her follow-up with her doctor for further care. Patient is very well-appearing, nontoxic. Afebrile. Patient counseled regarding signs and symptoms for which I believe and urgent re-evaluation would be necessary. Patient with good understanding of and agreement to plan and is comfortable going home at this time This document was made in part using voice recognition software. While efforts are made to proofread this document, sound alike and grammatical errors may occur. Departure - Departure Disposition: 01 Home, Self Care Clinical Impression: Dehydration, Vomiting affecting Condition: Good Instructions: ED Dehydration, ED Preg Morning Sickness Follow-Up: AMIRA URRUTIA MD [Primary Care Provider] - Within 1 week Prescriptions: Metoclopramide [Reglan] 10 mg PO Q6H PRN #20 tablet PRN Reason: Nausea / Vomiting Comments: Please make sure you are drinking plenty of fluid at home. We will prescribe you Reglan to help with the nausea and vomiting. Please return if you worsen.. This was sent to [facility] in [place]. Discharge Date/Time: 09/13/22 16:18
[2022-09-13 15:28] LABS: BILIRUBIN,URINE NEGATIVE (NEGATIVE); CLARITY,URINE CLEAR (CLEAR); GLUCOSE, URINE (UA) NEGATIVE (NEGATIVE); KETONES,URINE (UA) >=80 mg/dL (NEGATIVE); LEUKOCYTE ESTERASE, URINE NEGATIVE (NEGATIVE); NITRITE,URINE NEGATIVE (NEGATIVE); OCCULT BLOOD,URINE NEGATIVE (NEGATIVE); PROTEIN,URINE NEGATIVE (NEGATIVE); UROBILINOGEN,URINE 0.2 (NORMAL) E.U./dL (NORMAL)
[2022-09-13 16:19] VITALS: BP 112/74
== END 2022-09-13 16:18 | disposition home or self-care (01) ==
LOC: ED 13:23
DX: O21.9 Vomiting of pregnancy, unspecified (principal); O99.281 Endocrine, nutritional and metabolic diseases complicating pregnancy, first trimester; E86.0 Dehydration; E87.6 Hypokalemia; Z3A.09 9 weeks gestation of pregnancy
CPT/HCPCS: 36415; 80053; 81003; 83690; 85025; 96361; 96374; 96376; 99284; J2765; 81001; 87086